=== PATIENT | female | born 1950 | race Caucasian/White ===

== ENCOUNTER 2018-06-20 08:29 | Emergency (ER) | payer MEDICARE ==
[~2018-06-20] VITALS: Ht 162.6 cm; Wt 84.1 kg
--- NOTE | 2018-06-20 09:05 | NUR ---
TASK RN - PT PRESENTS TO ED C/O SOB WITH NON PROD COUGH X 3 DAYS. PT STATES SOB WORSE ON EXERTION AND WHILE LYING DOWN FLAT. PT DENIES ANY CHEST PAIN, N/V, OR DIZZINESS. RESTING ON GURNEY. CALL LIGHT IN REACH. CP MONITORS IN PLACE. REPORT TO TED IVERSON.
[2018-06-20 09:29] VITALS: BP 126/79
--- NOTE | 2018-06-20 09:29 | NUR ---
PT RESTING ON LUKE. NADN. COELLOS. AWARE OF POC FOR RT.
[2018-06-20] MEDS ORDERED: ALBUTEROL/IPRATROPIUM 2.5MG/0.5MG, 3 ML NPPB ONE (09:30)
[2018-06-20 09:32] LABS: BASOPHILS # (AUTO) 0.03 x10^3/uL (0-0.1); BASOPHILS % (AUTO) 1 % (0-1); EOSINOPHILS # (AUTO) 0.25 x10^3/uL (0-0.4); EOSINOPHILS % (AUTO) 4 % (1-7); LYMPHOCYTES # (AUTO) 1.63 x10^3/uL (1-3.4); LYMPHOCYTES % (AUTO) 28 % (22-44); MD NO; MEAN CORPUSCULAR HEMOGLOBIN 32.6 pg (27.0-34.8); MEAN CORPUSCULAR HGB CONC 34.4 g/dL (32.4-35.8); MEAN CORPUSCULAR VOLUME 94.9 fL (80-100); MEAN PLATELET VOLUME 7.9 fL (7.4-10.4); MONOCYTES % (AUTO) 12 % (2-9); NEUTROPHILS # (AUTO) 3.22 x10^3/uL (1.8-6.8); NEUTROPHILS % (AUTO) 55 % (42-75); PLATELET COUNT 257 x10^3/uL (130-400); RED BLOOD COUNT 4.56 x10^6/uL (3.82-5.3); RED CELL DISTRIBUTION WIDTH 12.9 % (9.6-15.2)
[2018-06-20 09:43] LABS: ALBUMIN 3.6 g/dL (3.4-5.0); ANION GAP 6 mmol/L (5-15); CALCIUM 8.9 mg/dL (8.5-10.1); CHLORIDE 102 mmol/L (98-107); CREATININE 0.73 mg/dL (0.55-1.02)
[2018-06-20 09:46] LABS: TROPONIN I < 0.015 ng/mL (0.000-0.045)
--- NOTE | 2018-06-20 09:58 | NUR ---
PT CHART REVIEWED AND PLACED FOR RECHECK.
== END 2018-06-20 10:25 | disposition home or self-care (01) ==
LOC: ED 09:59
DX: J43.9 Emphysema, unspecified (principal); Z87.891 Personal history of nicotine dependence
CPT/HCPCS: 36415; 71045; 80048; 82040; 83880; 84484; 85025; 93005; 94640; 99284; J7620

== ENCOUNTER → 2018-07-07 | Outpatient (CLI) | payer MEDICARE | END | disposition home or self-care (01) | LOC: CFH 11:30 | PROVIDERS: ATTEND Nurse Practitioner Family | DX: Z12.31 Encounter for screening mammogram for malignant neoplasm of breast (principal); M81.8 Other osteoporosis without current pathological fracture; M81.0 Age-related osteoporosis without current pathological fracture; M54.2 Cervicalgia | CPT/HCPCS: 76536; 77063; 77080; 77067 ==